=== PATIENT | male | born 1945 | race Caucasian/White ===

== ENCOUNTER 2018-10-02 01:13 | Outpatient (CLI) | payer OTHER, SELFPAY ==
[2018-10-02 14:52] LABS: Abs Immature Grans 0.01 k/cumm (0.0-0.09); Absolute Basophil Count 0.02 k/cumm (0.0-0.2); Absolute Eosinophil Count 0.09 k/cumm (0.0-0.7); Absolute Lymphocyte Count 1.96 k/cumm (1.2-3.4); Absolute Monocyte Count 0.64 k/cumm (0.11-0.7); Absolute Neutrophil Count 2.66 k/cumm (1.2-6.7); Basophils % 0.4; Eosinophils % 1.7; HGB 14.4 g/dL (13.5-17.5); Immature Grans % 0.2; Lymphocytes % 36.4; Mean Corp. HGB Concentration 34.3 g/dL (32.0-36.0); Mean Corpuscular Hemoglobin 30.8 pg (27.0-33.0); Mean Corpuscular Volume 89.7 fL (80-95); Mean Platelet Volume 10.5 fL (8.0-11.0); Monocytes % 11.9; Neutrophils % 49.4; Platelet Count 151 x1000/uL (130-400); RBC 4.68 m/cumm (4.50-6.00); RBC Distribution Width 13.9 % (11.8-14.1); White Blood Cell Count 5.38 k/cumm (4.4-10.8)
[2018-10-02 16:09] LABS: ALT 26 U/L (12-78); AST 23 U/L (15-37); Albumin 3.7 g/dL (3.4-5.0); Alkaline Phosphatase 58 U/L (46-116); Anion Gap 12.4 mmol/L (3-11); BUN 22 mg/dL (7-18); Bilirubin, Total 0.9 mg/dL (0.2-1.0); CO2 25.6 mmol/L (21.0-32.0); CREATININE 1.17 mg/dL (0.70-1.30); Calcium 8.9 mg/dL (8.5-10.1); Chloride 104 mmol/L (98-107); Cholesterol 191 mg/dL (50-200); Glucose 76 mg/dL (70-100); HDL Cholesterol 78 mg/dL (40-60); LDL CHOLESTEROL 94 mg/dL (<100); Sodium 142 mmol/L (136-145); TSH (W/Ref FT4) 1.45 uIU/mL (0.358-3.74); Total Protein 6.8 g/dL (6.4-8.2); Triglyceride 42 mg/dL (30-150); Vitamin B12 626 pg/mL (193-986)
[2018-10-02 16:59] LABS: Folate > 20.0 ng/mL (8.6-20.0)
[2018-10-02 17:08] LABS: Uric Acid 7.7 mg/dL (3.5-7.2)
[2018-10-05 11:56] LABS: Hepatitis C Ab w Rflx HCV PCR Negative (NEGAT)
[2018-10-05 13:06] LABS: Vitamin D 25 Total 65.7 ng/ml (30-100)
[2018-10-05 15:33] LABS: HIV-1 RNA Quantification Undetected copies/mL (UNDECT)
[2018-10-06 09:19] LABS: CD3 84 % (62-87); CD4 35 % (35-63); CD8 51 % (10-35)
[2018-10-08 09:24] LABS: Testosterone, Free 15.2 ng/dL (3.08-11.3); Testosterone, Total 726 ng/dL (240-950)
== END 2018-10-02 01:33 ==
PROVIDERS: PCP Family Medicine; Visit Provider Family Medicine
DX: Z86.2 Personal history of diseases of the blood and blood-forming organs and certain disorders involving the immune mechanism; R79.89 Other specified abnormal findings of blood chemistry; B20 Human immunodeficiency virus [HIV] disease; I10 Essential (primary) hypertension; R53.83 Other fatigue; E55.9 Vitamin D deficiency, unspecified; E78.2 Mixed hyperlipidemia; R10.32 Left lower quadrant pain; R97.20 Elevated prostate specific antigen [PSA]
CPT/HCPCS: 36415; 80053; 80061; 82306; 83721; 84402; 84403; 86803; 87536; 82607; 82746; 84154; 84443; 84550; 85025; 86359; 86360

== ENCOUNTER 2018-10-29 01:23 | Outpatient (CLI) | payer OTHER, SELFPAY | END 2018-10-29 01:43 | PROVIDERS: PCP Family Medicine; Visit Provider Family Medicine | DX: R97.20 Elevated prostate specific antigen [PSA] (principal) | CPT/HCPCS: 84154 ==

== ENCOUNTER 2018-11-02 00:38 | Outpatient (CLI) | payer OTHER, SELFPAY ==
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
== END 2018-11-02 00:58 ==
PROVIDERS: PCP Family Medicine; Visit Provider Family Medicine
DX: R07.9 Chest pain, unspecified (principal); E78.5 Hyperlipidemia, unspecified; I10 Essential (primary) hypertension; R53.83 Other fatigue; F41.9 Anxiety disorder, unspecified; Z87.891 Personal history of nicotine dependence
CPT/HCPCS: 78452; 93016; 93018; 93017

== ENCOUNTER 2018-12-18 03:52 | Outpatient (CLI) | payer OTHER, SELFPAY ==
[2018-12-20 16:34] LABS: Testosterone, Free 10.4 ng/dL (3.08-11.3); Testosterone, Total 650 ng/dL (240-950)
== END 2018-12-18 04:12 ==
PROVIDERS: PCP Family Medicine; Visit Provider Family Medicine
DX: R79.89 Other specified abnormal findings of blood chemistry (principal)
CPT/HCPCS: 36415; 84402; 84403

== ENCOUNTER → 2018-12-31 12:39 | Outpatient (BNVA) | payer OTHER, SELFPAY | PROVIDERS: PCP Family Medicine; Referring Provider Family Medicine; Visit Provider Urology | DX: R79.89 Other specified abnormal findings of blood chemistry (principal); R97.20 Elevated prostate specific antigen [PSA] | CPT/HCPCS: 99203 ==

== ENCOUNTER 2019-01-14 09:59 | Outpatient (CLI) | payer OTHER, SELFPAY ==
[2019-01-14 14:38] LABS: ALT 30 U/L (16-63); AST 27 U/L (15-37); Albumin 3.8 g/dL (3.4-5.0); Alkaline Phosphatase 61 U/L (46-116); Anion Gap 9.3 mmol/L (3-11); BUN 19 mg/dL (7-18); Bilirubin, Total 1.2 mg/dL (0.2-1.0); CO2 25.7 mmol/L (21.0-32.0); CREATININE 1.21 mg/dL (0.70-1.30); Calcium 8.5 mg/dL (8.5-10.1); Chloride 106 mmol/L (98-107); Estimated GFR 58.46 (mL/min/1.73m2); Folate 18.4 ng/mL (8.6-20.0); Glucose 78 mg/dL (70-100); Potassium 4.1 mmol/L (3.5-5.1); Sodium 141 mmol/L (136-145); Total Protein 6.7 g/dL (6.4-8.2); Vitamin B12 407 pg/mL (193-986)
[2019-01-14 14:48] LABS: Abs Immature Grans 0.01 k/cumm (0.0-0.09); Absolute Basophil Count 0.03 k/cumm (0.0-0.2); Absolute Eosinophil Count 0.06 k/cumm (0.0-0.7); Absolute Lymphocyte Count 1.78 k/cumm (1.2-3.4); Absolute Monocyte Count 0.43 k/cumm (0.11-0.7); Basophils % 0.6; Eosinophils % 1.2; HCT 42.9 % (40.0-50.0); HGB 14.5 g/dL (13.5-17.5); Immature Grans % 0.2; Mean Corp. HGB Concentration 33.8 g/dL (32.0-36.0); Mean Corpuscular Hemoglobin 30.1 pg (27.0-33.0); Mean Corpuscular Volume 89.2 fL (80-95); Mean Platelet Volume 12.4 fL (8.0-11.0); Monocytes % 8.9; Neutrophils % 52.1; Platelet Count 112 x1000/uL (130-400); RBC 4.81 m/cumm (4.50-6.00); RBC Distribution Width 14.6 % (11.8-14.1); White Blood Cell Count 4.81 k/cumm (4.4-10.8)
[2019-01-14 14:49] LABS: Uric Acid 8.3 mg/dL (3.5-7.2)
[2019-01-14 14:52] LABS: Vitamin D 25 Total 70.6 ng/ml (30-100)
[2019-01-15 16:25] LABS: HIV-1 RNA Quantification Undetected copies/mL (UNDECT)
[2019-01-15 16:40] LABS: CD3 84 % (62-87); CD4 36 % (35-63); CD8 52 % (10-35)
== END 2019-01-14 10:19 ==
PROVIDERS: PCP Family Medicine; Visit Provider Family Medicine
DX: E55.9 Vitamin D deficiency, unspecified (principal); E53.8 Deficiency of other specified B group vitamins; I10 Essential (primary) hypertension; E79.0 Hyperuricemia without signs of inflammatory arthritis and tophaceous disease; B20 Human immunodeficiency virus [HIV] disease
CPT/HCPCS: 36415; 80053; 82306; 87536; 82607; 82746; 84550; 85025; 86359; 86360

== ENCOUNTER 2019-11-02 01:16 | Outpatient (CLI) | payer OTHER, SELFPAY ==
[2019-11-05 07:35] LABS: Testosterone, Total 875 ng/dL (240-950)
== END 2019-11-02 01:36 ==
PROVIDERS: PCP Family Medicine; Visit Provider Urology
DX: R97.20 Elevated prostate specific antigen [PSA] (principal); R79.89 Other specified abnormal findings of blood chemistry
CPT/HCPCS: 84403; 84154

== ENCOUNTER → 2019-11-09 14:34 | Outpatient (BNVA) | payer OTHER, SELFPAY | PROVIDERS: PCP Family Medicine; Referring Provider Family Medicine; Visit Provider Urology | DX: E29.1 Testicular hypofunction (principal); R97.20 Elevated prostate specific antigen [PSA]; R79.89 Other specified abnormal findings of blood chemistry; I10 Essential (primary) hypertension; B20 Human immunodeficiency virus [HIV] disease | CPT/HCPCS: 99213 ==

== ENCOUNTER 2019-12-10 01:58 | Outpatient (CLI) | payer OTHER, SELFPAY ==
[2019-12-10 11:31] LABS: HCT 46.3 % (40.0-50.0); HGB 15.9 g/dL (13.5-17.5); MCH 32.9 pg (27.0-33.0); MCHC 34.3 % (32.0-36.0); MCV 95.7 fL (80-95); MPV 11.2 fL (8.0-11.0); Platelet Count 109 10^3/uL (130-400); RBC 4.84 10^6/uL (4.36-5.78); RDW 12.9 % (11.8-14.1); RDW-SD 45.6 fL; WBC 5.25 10^3/uL (4.4-10.8)
[2019-12-10 12:00] LABS: Absolute Eosinophil Count 0.05 10^3/uL (0.0-0.7); Absolute Lymphocyte Count 2.31 10^3/uL (1.2-3.4); Absolute Monocyte Count 0.16 10^3/uL (0.1-0.8); Absolute Neutrophil Count 2.73 10^3/uL (1.2-6.7); Atypical Lymphocytes % 14
[2019-12-10 12:01] LABS: Diff Comment Manual Differential; RBC Morphology Normal
[2019-12-10 12:08] LABS: ALT 33 U/L (16-63); AST 33 U/L (15-37); Albumin 3.7 g/dL (3.4-5.0); Alkaline Phosphatase 50 U/L (46-116); Anion Gap 8.1 mmol/L (3-11); BUN 20 mg/dL (7-18); CO2 28.9 mmol/L (21.0-32.0); CREATININE 1.19 mg/dL (0.70-1.30); Chloride 105 mmol/L (98-107); Estimated GFR 59.44 (mL/min/1.73m2); Glucose 84 mg/dL (74-106); Potassium 4.2 mmol/L (3.5-5.1); Sodium 142 mmol/L (136-145); Total Protein 6.9 g/dL (6.4-8.2); Uric Acid 7.4 mg/dL (3.5-7.2)
[2019-12-10 12:45] LABS: Vitamin B12 518 pg/mL (193-986)
[2019-12-12 15:26] LABS: CD3 82 % (62-87); CD4 33 % (35-63); CD8 52 % (10-35)
[2019-12-13 11:02] LABS: Hepatitis B Surface Ag Negative (Negative)
[2019-12-13 11:51] LABS: Hepatitis C Ab w Rflx HCV PCR Negative (Negative)
[2019-12-13 12:47] LABS: Hep A Total Ab w Rflx IgM Positive (Negative)
[2019-12-13 13:21] LABS: HBc IgM Ab, S Negative (Negative)
[2019-12-14 11:46] LABS: RPR Screen Response to Therapy Nonreactive (Nonreactive)
[2019-12-14 13:05] LABS: Hep A Antibody IgM Negative (Negative)
== END 2019-12-10 02:18 ==
PROVIDERS: PCP Family Medicine; Visit Provider Family Medicine
DX: B20 Human immunodeficiency virus [HIV] disease (principal)
CPT/HCPCS: 36415; 80053; 86709; 86803; 87340; 82607; 84550; 85025; 86359; 86360; 86592; 86705

== ENCOUNTER 2019-12-17 01:41 | Outpatient (CLI) | payer OTHER, SELFPAY ==
[2019-12-20 14:02] LABS: HIV 1 RNA Qualitative Undetected copies/mL (Undetected)
== END 2019-12-17 02:01 ==
PROVIDERS: PCP Family Medicine; Visit Provider Family Medicine
DX: B20 Human immunodeficiency virus [HIV] disease (principal); Z00.00 Encounter for general adult medical examination without abnormal findings
CPT/HCPCS: 36415; 87536

== ENCOUNTER → 2020-01-13 09:03 | Outpatient (BNVA) | payer OTHER, SELFPAY | PROVIDERS: PCP Family Medicine; Referring Provider Family Medicine; Visit Provider Nurse Practitioner Adult Health | DX: G31.84 Mild cognitive impairment of uncertain or unknown etiology (principal); I10 Essential (primary) hypertension; R41.3 Other amnesia; B20 Human immunodeficiency virus [HIV] disease | CPT/HCPCS: 99204 ==

== ENCOUNTER 2020-01-25 11:13 | Outpatient (CLI) | payer OTHER, SELFPAY ==
--- NOTE | 2020-01-25 11:00 | DI.RAD_ITS ---
EXAM: XR KNEE RT 2V AP,LAT CLINICAL HISTORY: pain TECHNIQUE: COMPARISON: No exams were available for comparison FINDINGS: Two views were obtained. The cartilaginous joint spaces appear fairly well maintained. There is mod erate marginal osteophyte formation of the bones of the knee. Probable loose body seen anteriorly on the lateral film. IMPRESSION: Degenerative changes as described above. RADIATION DOSE DELIVERED: Total DLP
--- NOTE | 2020-01-25 11:00 | DI.RAD_ITS ---
EXAM: XR KNEE LT 2V AP,LAT CLINICAL HISTORY: pain TECHNIQUE: COMPARISON: CR XR KNEE RT 2V AP,LAT from 01/25/2020 FINDINGS: Two views were obtained. There is moderate marginal osteophyte formation of bones of the knee. Cart ilaginous joint spaces appear fairly well maintained as visualized. No other significant bony abnorm ality seen. IMPRESSION: Mild degenerative changes as described above. RADIATION DOSE DELIVERED: Total DLP
== END 2020-01-25 11:33 ==
PROVIDERS: PCP Family Medicine; Referring Provider Family Medicine; Visit Provider Orthopaedic Surgery
DX: M17.0 Bilateral primary osteoarthritis of knee (principal)
CPT/HCPCS: 99201; 73560

== ENCOUNTER 2020-01-26 01:23 | Outpatient (CLI) | payer OTHER, SELFPAY ==
--- NOTE | 2020-01-26 07:00 | DI.MRI_ITS ---
EXAM: MR BRAIN WO CLINICAL HISTORY: Memory changes. Has implantable loop recorder,mild cognitive impairment, TECHNIQUE: Multiplanar multisequence MRI of the brain was performed. COMPARISON: No exams were available for comparison FINDINGS: The ventricular system is normal in appearance with mild generalized cerebral atrophy.. Mild scattered periventricular focal signal changes noted consistent with microvascular ischemic song ge. No other signal abnormality identified in the brain. The orbital and temporal bone structures appear intact as does the pituitary. Diffusion weighted imaging shows no evidence of infarction. Susceptibility weighted imaging shows no evidence of intracranial hemorrhage. There is normal flow void in the [place] vasculature. IMPRESSION: Normal brain MRI for age. DATA REPOSITORY:
== END 2020-01-26 01:43 ==
PROVIDERS: PCP Family Medicine; Visit Provider Nurse Practitioner Adult Health
DX: G31.84 Mild cognitive impairment of uncertain or unknown etiology (principal)
CPT/HCPCS: 70551

== ENCOUNTER → 2020-02-04 12:56 | Outpatient (BNVA) | payer OTHER, SELFPAY | PROVIDERS: PCP Family Medicine; Referring Provider Family Medicine; Visit Provider Physical Therapy Assistant | DX: Z12.11 Encounter for screening for malignant neoplasm of colon (principal); Z80.0 Family history of malignant neoplasm of digestive organs; I10 Essential (primary) hypertension; Z86.010 Personal history of colon polyps ==

== ENCOUNTER 2020-02-25 06:12 | Day surgery (SDC) | payer OTHER, SELFPAY ==
[2020-02-25 06:30] VITALS: BP 112/73; PULSE 65; RESP 16; TEMP 36.3; O2SAT 97
[2020-02-25] MEDS: Lactated Ringers 1,000 ML 80 ML IV (07:13)
--- NOTE | 2020-02-25 07:28 | W.PM.DSUDISC ---
Discharge Plan Disposition Patient Disposition: HOME Condition: Good Discharge Details Reason For Visit: Colonoscopy Attending Provider: Stephanie Aly Primary Care Provider: Miranda Mota Home Meds and New Rx's Prescriptions: Continued melatonin 5 mg capsule 5 mg PO PRN RF: 0 Eliquis 5 mg tablet 5 mg PO BID Qty: 180 RF: 4 bupropion HCl [Wellbutrin XL] 150 mg tablet extended release 24 hr 150 mg PO QAM Qty: 90 RF: 4 escitalopram oxalate [Lexapro] 20 mg tablet 20 mg PO DAILY Qty: 90 RF: 4 multivitamin tablet 1 tab PO DAILY RF: 0 naproxen [Naprosyn] 500 mg tablet 500 mg PO BID PRNRF: 0 Shingrix (PF) 50 mcg/0.5 mL suspension for reconstitution 0.5 ml IM ONCE Qty: 1 RF: 0 Odefsey 200-25-25 mg tablet 1 tab PO DAILY Qty: 90 RF: 3 sildenafil [Viagra] 100 mg tablet 100 mg PO DAILY PRN (Reason: erectile dysfunction) Qty: 18 RF: 4 testosterone 20.25 mg/1.25 gram (1.62 %) gel in metered-dose pump 2 pump TP DAILY Qty: 75 RF: 5 Discharge Instructions Additional Instructions: Findings: Extensive diverticulosis was noted. No polyps were found. Follow up: Due to a history of polyps and FH colon cancer, plan for a colonoscopy in 5 years depending on overall health. Please call if you develop: fevers >101.5 Nausea or Vomiting Abdominal pain that is not transient DAY SURGERY UNIT POST COLONOSCOPY INSTRUCTIONS 1. Because there will be medication in your system for the next 24 hours, you may feel a little sleepy. Your coordination will be affected. Therefore: a. Do not drive or operate dangerous equipment for 24 hours. b. Do not drink alcohol beverages for 24 hours (not even beer). c. Plan to go home and rest for the day. 2. Generally there are no restrictions on your activity after a day or so has gone by, but you may feel a bit fatigued for a few days. 3 After you arrive home you may have a light meal and return to a normal diet as you can tolerate it without feeling sick to your stomach. 4. After surgery, you may feel pain or discomfort. This should be only transient, but if it persists please contact your doctor. 5. If there are any questions regarding the findings of your procedure, please feel free to contact your doctor. 6. If you are unable to contact your doctor with a problem, contact the hospital at [phone]. 7. Continue all your regular medications unless directed otherwise. I understand the above instructions and have no questions. Signature of Patient or Responsible Adult Escort Date/Time Name of Responsible Adult Escort Signature of Nurse Date/Time Activity:: Activity as Tolerated Diet:: As Tolerated Discharge Orders Discharge Orders: Discharge Order (Routine); Ordered 02/25/20 Ordered By: Stephanie Aly DS: Diagnosis Discharge Diagnosis (1) Diverticulosis: Status: Acute
--- NOTE | 2020-02-25 08:09 | W.COLOREPORT ---
Date of service: 02/25/20 Time of Service: 08:09 Colonoscopy Report Date of procedure: 02/25/20 Pre-op diagnosis general: History of polyps, FH colon cancer Post-op diagnosis procedure note: other (Diverticulosis) Procedure: Colonoscopy Surgeon: Stephanie Aly Anesthesia proc note operative: MAC Indications: This 74 year old man presents for colonoscopy. Prior in 2017 showed tubular adenomas. Mother was treated for colon cancer. Procedure Description: The patient was placed in the left Diamond position. Propofol was titrated to sedation. Digital rectal examination revealed no abnormalities. The scope was advanced to the cecum without difficulty. The ileocecal valve and appendiceal orifice were clearly identified. The prep was good. The scope was slowly withdrawn over the course of greater than 6 minutes with no abnormalities (with the exception of pandiverticulosis) seen in the ascending, transverse, descending, sigmoid colon or rectum including on retroflexed view. The patient tolerated the procedure well and was stable to recovery. Plan for colonoscopy in 5 years due to history of polyps and FH colon cancer.
[2020-02-25 08:35] VITALS: BP 123/84; PULSE 64; RESP 18; TEMP 36.2; O2SAT 98
== END 2020-02-25 08:59 | disposition home or self-care (01) ==
PROVIDERS: PCP Family Medicine; Visit Provider Surgery
PROC: 0DJD8ZZ Inspection of Lower Intestinal Tract, Via Natural or Artificial Opening Endoscopic (ICD-10-PCS; CPT 45378; principal; 2020-02-25 07:30)
DX: Z12.11 Encounter for screening for malignant neoplasm of colon (principal); Z80.0 Family history of malignant neoplasm of digestive organs; Z86.010 Personal history of colon polyps; I10 Essential (primary) hypertension; Z86.711 Personal history of pulmonary embolism
CPT/HCPCS: G0105; J2001

== ENCOUNTER 2020-03-06 02:08 | Outpatient (CLI) | payer OTHER, SELFPAY ==
[2020-03-06 12:44] LABS: Abs Immature Grans 0.02 10^3/uL (0.0-0.06); Absolute Basophil Count 0.04 10^3/uL (0.0-0.2); Absolute Eosinophil Count 0.05 10^3/uL (0.0-0.7); Absolute Lymphocyte Count 2.04 10^3/uL (1.2-3.4); Absolute Monocyte Count 0.51 10^3/uL (0.1-0.8); Absolute Neutrophil Count 3.12 10^3/uL (1.2-6.7); Basophils % 0.7; Eosinophils % 0.9; HCT 44.7 % (40.0-50.0); HGB 15.2 g/dL (13.5-17.5); Immature Grans % 0.3; Lymphocytes % 35.3; MCH 33.2 pg (27.0-33.0); MCV 97.6 fL (80-95); MPV 10.9 fL (8.0-11.0); Monocytes % 8.8; Nucleated RBC 0 %; Platelet Count 130 10^3/uL (130-400); RBC 4.58 10^6/uL (4.36-5.78); RDW 13.2 % (11.8-14.1); RDW-SD 46.8 fL; WBC 5.78 10^3/uL (4.4-10.8)
[2020-03-06 13:15] LABS: Calculated LDL 99 mg/dL (<100); Cholesterol 192 mg/dL (<200); HDL Cholesterol 83 mg/dL (40-60); Triglyceride 51 mg/dL (<150)
[2020-03-07 17:28] LABS: CD3 81 % (62-87); CD4 32 % (35-63); CD8 52 % (10-35)
[2020-08-02 16:49] LABS: HIV 1 RNA Qualitative Undetected (Undetected)
== END 2020-03-06 02:28 ==
PROVIDERS: PCP Family Medicine; Visit Provider Emergency Medicine
DX: B20 Human immunodeficiency virus [HIV] disease (principal)
CPT/HCPCS: 36415; 80061; 87536; 85025; 86359; 86360

== ENCOUNTER 2020-04-04 15:50 | Emergency (ER) | payer OTHER, SELFPAY ==
[2020-04-04] VITALS (36 sets, daily range): BP systolic 126–150; BP diastolic 70–113; PULSE 59–94; RESP 9–25; TEMP 36.7; O2SAT 95–100
--- NOTE | 2020-04-04 15:45 | RT.EKG_ITS ---
APPROVED REPORT Exam: Resting ECG Patient Location: E HR:82 bpm ECG Measurements Heart Rate 82 AXIS WA 184 P 52 QRSd 96 QRS -33 QT 380 T 10 QTc 443 Conclusion Sinus rhythm...normal P axis, V-rate 60- 99 Left axis deviation...QRS axis (-30,-90) I have reviewed and interpreted ECG and agree with software generated interpretation.
--- NOTE | 2020-04-04 15:56 | W.ED.GENAD ---
Discharge Plan Disposition Patient Disposition: HOME Condition: Good Discharge Details Clinical Impression: Chest wall pain Primary Care Provider: Miranda Mota ED Provider: Katie Kilgore Home Meds and New Rx's Prescriptions: New lidocaine [Lidoderm] 5 % adhesive patch,medicated 1 patch TP DAILY PRN (Reason: pain) Qty: 15 RF: 0 Continued melatonin 5 mg capsule 5 mg PO PRN RF: 0 Eliquis 5 mg tablet 5 mg PO BID Qty: 180 RF: 4 bupropion HCl [Wellbutrin XL] 150 mg tablet extended release 24 hr 150 mg PO QAM Qty: 90 RF: 4 escitalopram oxalate [Lexapro] 20 mg tablet 20 mg PO DAILY Qty: 90 RF: 4 multivitamin tablet 1 tab PO DAILY RF: 0 naproxen [Naprosyn] 500 mg tablet 500 mg PO BID PRNRF: 0 Shingrix (PF) 50 mcg/0.5 mL suspension for reconstitution 0.5 ml IM ONCE Qty: 1 RF: 0 Odefsey 200-25-25 mg tablet 1 tab PO DAILY Qty: 90 RF: 3 sildenafil [Viagra] 100 mg tablet 100 mg PO DAILY PRN (Reason: erectile dysfunction) Qty: 18 RF: 4 testosterone 20.25 mg/1.25 gram (1.62 %) gel in metered-dose pump 2 pump TP DAILY Qty: 75 RF: 5 Discharge Instructions Instructions: Chest Wall Pain (ED) Additional Instructions: Alternate ice and heat to the affected area(s) several times daily for 20 minutes at a time. Take Tylenol as needed and directed for pain. Follow-up with your primary care doctor in 1 week. Return to the emergency department with any worsening or new concerning symptoms. Discharge Data Discharge Date/Time-TO BE ENTERED AT DEPARTURE: 04/04/20 19:21 Discharge Physician: Katie Kilgore Medical Decision Making 1630 -- 75-year-old male with a history of HIV,, hypertension, hyperlipidemia presents for cough, pleuritic and reproducible left-sided chest pain with movement, and intermittent shortness of breath with exertion for the past 10 days EKG notes a rate of 82, sinus without acute ST-T wave ischemic changes, nondiagnostic. Patient appears nontoxic and comfortable. No signs of respiratory distress. He has left anterior inferior chest tenderness. Lungs clear. Differential diagnosis includes PE, pneumonia, bronchitis, musculoskeletal chest wall pain, etc. Will place an IV, bolus IV fluids, screening labs, Lidoderm patch, CT chest to rule out PE and reassess. 1844 -- Labs and imaging reviewed and unremarkable. Patient reassessed and he feels much better and feels good to go home. We will send with prescription for Lidoderm patches. Advised to alternate ice and heat. Advised to follow up with the primary care doctor for re-evaluation. Usual and customary return precautions given prior to discharge. 04/05/20-- One day after ED visit discharge: Dr. Downing read CT chest from yesterday and noted a discrepancy with indeterminate left upper lobe pulmonary nodule appears to be of fat attenuation, this is suggestive of pulmonary hamartoma. Follow-up chest CT recommended in 6 months to assess stability. Patient was called at home and informed of these findings and to have a follow-up CT chest in 6 months. Medical Records Medical records reviewed: Yes I reviewed the patient's medical records. Imaging Data Radiologic Study: Radiologist's impression: CT Angiography Chest With Contrast Exam date and time: 04/04/2020 5:49 PM Age: 75 years old Clinical indication: Other: Shortness of breath, L chest pain, R/O pe; Prior surgery; Surgery date: 6+ months; Surgery type: Cardiac oblation 2015 TECHNIQUE: Imaging protocol: Computed tomographic angiography of the chest with intravenous contrast. 3D rendering (Not supervised by radiologist): MIP and/or 3D reconstructed images were created by the technologist. Contrast material: OMNIPAQUE 350; Contrast volume: 100 ml; Contrast route: INTRAVENOUS (IV); COMPARISON: No relevant prior studies available. FINDINGS: Pulmonary arteries: No evidence of pulmonary embolism. Aorta: No aortic aneurysm. No aortic dissection. Lungs: Mild bibasilar atelectasis. No focal consolidation. 4 mm right middle lobe nodule, image 41. 4 mm left upper lobe nodule, image 36. Pleural space: No pleural effusion. No pneumothorax. Heart: The heart is mildly enlarged. No pericardial effusion. Lymph nodes: No pathologically enlarged lymph nodes. Liver: Small, nonspecific hypodensities are seen in the liver. Bones/joints: There are remote bilateral rib deformities. There are multilevel degenerative changes in the spine. No acute fracture. No destructive bone lesion. Soft tissues: Unremarkable. IMPRESSION: 1. No evidence of pulmonary embolism. 2. No aortic dissection. 3. Mild cardiomegaly. 4. Additional incidental/non-emergent findings, as above. CT CHEST PE CTA - 04/05/20 Dr. Downing CLINICAL HISTORY: shortness of breath, L chest pain, r/o PE. TECHNIQUE: Imaging Protocol: Axial CT angiography was performed with multi-slice acquisition and multi-planar and/or 3D reconstructions. CONTRAST MATERIAL: Intravenous: Omnipaque 350 Contrast volume:structured data in ml COMPARISON: No exams were available for comparison FINDINGS: CT angiography of the chest was performed with intravenous infusion of 100 cc of Omnipaque 350. Lungs are predominantly clear. There is a fat attenuation elongated nodule of left upper pulmonary medially at the aortic arch, this measures 17 x 12 x 8 millimeters in diameter and has a lobulated appearance. Small calcified left upper lobe pulmonary nodule noted.. No pleural effusion. Tracheobronchial tree appears intact. No evidence of pulmonary embolic disease. Thoracic aorta is of normal diameter, no thoracic aortic aneurysm or dissection, major branch vessels appear intact. No mediastinal or hilar adenopathy. Images obtained through the upper abdomen show nonspecific low-attenuation small hepatic lesions consistent cysts. However these are too small to characterize conclusively. Visualized portions of pancreas, spleen, and adrenals appear normal. IMPRESSION: No evidence of pulmonary embolic disease. Indeterminate left upper lobe pulmonary nodule appears to be of fat attenuation, this is suggestive of pulmonary hamartoma. Follow-up chest CT recommended in 6 months to assess stability. Lab Data Lab results reviewed: Yes I reviewed the patient's lab results. ECG Data Attestation: I personally reviewed and interpreted this ECG (s) as follows: Interpretation: Rate of 82, sinus, no acute ST elevation or depression. RI 184. QRS 96. QTc 443 HPI General Mode of arrival: ambulatory. Date/Time Provider Initiated Documentation: 04/04/20 15:51. Limitations to Documentation: no limitations. Information obtained by: patient. 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 Patient states his main complaint is left-sided chest pain that is worse with movement and deep breaths. He states with ambulation he feels winded . He admits to a minimal cough but occasionally productive of white or beige sputum but denies any known fever. He denies any recent travel, recent known sick contacts, recent known exposure to coronavirus, recent hospital admission. He states he called his primary care doctor for his symptoms and they referred him here for further evaluation. He states he has not missed any doses of his Eliquis. Related Data Home Medications Medication Instructions Recorded Confirmed multivitamin 1 tab PO DAILY 07/21/18 04/04/20 naproxen 500 mg tablet 500 mg PO BID PRN 07/21/18 04/04/20 varicella-zoster glycoE [id number] 0.5 ml IM ONCE #1 each 02/11/19 02/24/20 adj(PF) 50 mcg/0.5 mL IM susp, kit emtricitabine 200 mg-rilpivirine 1 tab PO DAILY #90 tab 06/12/19 04/04/20 25 mg-tenofovir alafenam 25 mg tablet apixaban 5 mg tablet 5 mg PO BID #180 tab 12/16/19 04/04/20 bupropion HCl 150 mg 24 hr tablet, 150 mg PO QAM #90 tab 12/16/19 04/04/20 extended release escitalopram oxalate 20 mg tablet 20 mg PO DAILY #90 tab 12/16/19 04/04/20 sildenafil 100 mg tablet 100 mg PO DAILY PRN #18 tab 01/04/20 04/04/20 testosterone 20.25 mg/1.25 gram 2 pump TP DAILY #75 gm 01/04/20 04/04/20 (1.62 %) transdermal gel pump melatonin 5 mg capsule 5 mg PO PRN cap 01/25/20 04/04/20 lidocaine [Lidoderm] 1 patch TP DAILY PRN #15 each 04/04/20 Previous Rx's Medication Instructions Recorded varicella-zoster glycoE vacc-[id number] 0.5 ml IM ONCE #1 each 02/11/19 adj(PF) 50 mcg/0.5 mL IM susp, kit emtricitabine 200 mg-rilpivirine 1 tab PO DAILY #90 tab 06/12/19 25 mg-tenofovir alafenam 25 mg tablet apixaban 5 mg tablet 5 mg PO BID #180 tab 12/16/19 bupropion HCl 150 mg 24 hr tablet, 150 mg PO QAM #90 tab 12/16/19 extended release escitalopram oxalate 20 mg tablet 20 mg PO DAILY #90 tab 12/16/19 sildenafil 100 mg tablet 100 mg PO DAILY PRN #18 tab 01/04/20 testosterone 20.25 mg/1.25 gram 2 pump TP DAILY #75 gm 01/04/20 (1.62 %) transdermal gel pump lidocaine [Lidoderm] 1 patch TP DAILY PRN #15 each 04/04/20 Allergies Allergy/AdvReac Type Severity Reaction Status Date / Time No Known Drug Allergies Allergy Unknown Verified 04/04/20 16:06 Review of Systems All systems reviewed & are unremarkable except as noted in HPI and below Constitutional Constitutional: Reports as per HPI, Denies chills, Denies fever(s) and Reports malaise Eyes Eyes: Denies blurry vision ENT Ears, Nose, Mouth, and Throat: Denies dizziness, Denies sore throat and Denies throat swelling Cardiovascular Cardiovascular: Reports chest pain and Reports dyspnea Respiratory Respiratory: Reports cough and Reports dyspnea Gastrointestinal Gastrointestinal: Denies abdominal pain, Denies diarrhea and Denies vomiting Genitourinary Genitourinary: Denies hematuria and Denies dysuria Musculoskeletal Musculoskeletal: Denies back pain and Denies numbness Integumentary/Breasts Skin/Breast: Denies lesions and Denies rash Neurologic Neurologic: Denies dizziness, Denies localized weakness and Denies numbness Allergic/Immunologic Allergic/Immunologic: Denies throat swelling FOR[facility]LY [facility], [facility] Medical History (Updated 04/04/20 @ 19:08 by Katie Kilgore DO) Allergic rhinitis (~2012) Anxiety disorder (~2017) Benign prostatic hyperplasia with lower urinary tract symptoms (~2018) Disorder of kidney and ureter (~2017) Elevated PSA Essential hypertension (~2012) History of pulmonary embolism 02/25, 03/29 HIV (human immunodeficiency virus infection) (~2011) Hx of diverticulitis of colon Hx of gastrointestinal diverticular hemorrhage Hypogonadism (~2012) Low testosterone (~2012) Mild cognitive impairment Mixed hyperlipidemia (~2016) POLST (Physician Orders for Life-Sustaining Treatment) Spinal stenosis, lumbar region with neurogenic claudication Vestibular hypofunction (~2017) Vitamin B12 deficiency (~2012) Surgical History History of cardiac catheterization History of hernia repair left inguinal 1999, right 1970 History of loop recorder 2017 Family History Mother , 88 Prostate cancer Depression Stroke Father , 79 Depression Stroke Alcohol abuse Sister , 75 Breast cancer Alcohol abuse Hypertension Substance abuse Brother Prostate cancer Depression Social History (Updated 02/24/20 @ 11:50 by Rajni Nix) Smoking/Tobacco Use Status: Former Tobacco Use Quit Date: 05/12/84 Second Hand Exposure: Yes Smoking risk assessment performed?: Yes Alcohol Intake: current Alcohol Intake frequency: 0-2 drinks per day Alcohol type: beer, wine and hard liquor Drug use: Rarely Substance use type: marijuana Caregiver/Support person: No Household members: significant other Housing: condominium Number of Children: 0 Communication Needs: Corrective Lenses Do you need help understanding health information?: Rarely Pets and animals: No Sexually active: Yes Do you think of yourself as: lesbian/jason/homosexual Current gender identity: male What is your relationship status?: living with partner How often do you talk on the phone with friends or family?: once per week How often do you get together with friends or relatives?: once per week How often do you attend mosque or samaritan services?: 4 or more times per year Do you belong to any clubs or organized social groups?: yes Panel score (0-1 are the most socially isolated patients): 3 What type of physical activity do you participate in: walking, independent ambulation, bicycling and regular exercise Duration: 45-60 minutes/day Frequency: 3-4 times per week Maryam/Alevism: Pentecostalism Special maryam needs: No Seatbelt use: always Helmet use: Yes Helmet use: always Drive intox or ride w/intox truck driver salesperson: No Do you feel safe at home: Yes Do you feel safe in your relationship?: Yes Exam Const General: cooperative and healthy appearing Orientation: alert and awake HENIL Head: normal to inspection Ears: hearing grossly normal bilaterally and external ears normal General nose exam: external nose normal Face and sinus: normal facial exam Mouth: oral mucosae normal Teeth and gingiva: dentition normal Throat: posterior oropharynx normal Eyes General: appearance normal, both eyes and all related structures Eyelids: eyelids normal Pupils: PERRL EOM: EOM intact bilaterally Neck Neck: normal visual inspection Lymphatic: no lymphadenopathy noted Chest Chest: normal inspection of the chest Chest/axillae images: 1. Tenderness to palpation of left anterior inferior chest. No crepitus, erythema, edema, ecchymosis. Resp Effort & Inspection: normal respiratory effort and able to speak in complete sentences Auscultation: clear to auscultation bilaterally Cardio Rate: regular rate Rhythm: regular rhythm GI Inspection: normal to inspection Palpation: soft, not firm, no guarding, no hepatosplenomegaly, no masses and nontender Auscultation: normal bowel sounds Back/Spine/Pelvis Back: no CVA tenderness Skin General skin exam: no rashes or lesions noted Neuro General: patient alert and patient awake Cognition: normal cognition Speech: speech normal Gait: normal gait Motor: muscle tone normal throughout Sensory Exam: no sensory deficits noted Extrem General: normal to inspection, full ROM, capillary refill normal and no edema Psych Appearance: grossly normal Mental Status: mental status grossly normal Speech and Movement: speech and movement normal Affect: normal affect Thought Process: normal
[2020-04-04 16:17] LABS: Abs Immature Grans 0.01 10^3/uL (0.0-0.06); Absolute Basophil Count 0.03 10^3/uL (0.0-0.2); Absolute Eosinophil Count 0.05 10^3/uL (0.0-0.7); Absolute Lymphocyte Count 1.76 10^3/uL (1.2-3.4); Absolute Monocyte Count 0.48 10^3/uL (0.1-0.8); Absolute Neutrophil Count 3.37 10^3/uL (1.2-6.7); Basophils % 0.5; Eosinophils % 0.9; HCT 43.7 % (40.0-50.0); HGB 15.1 g/dL (13.5-17.5); Immature Grans % 0.2; Lymphocytes % 30.9; MCH 33.6 pg (27.0-33.0); MCHC 34.6 % (32.0-36.0); MCV 97.3 fL (80-95); MPV 10.7 fL (8.0-11.0); Monocytes % 8.4; Neutrophils % 59.1; Nucleated RBC 0 %; Platelet Count 120 10^3/uL (130-400); RBC 4.49 10^6/uL (4.36-5.78); RDW 12.7 % (11.8-14.1); RDW-SD 45.6 fL
--- NOTE | 2020-04-04 16:25 | DI.CT_ITS ---
EXAM: CT CHEST PE CTA CLINICAL HISTORY: shortness of breath, L chest pain, r/o PE. TECHNIQUE: Imaging Protocol: Axial CT angiography was performed with multi-slice acquisition and mu lti-planar and/or 3D reconstructions. CONTRAST MATERIAL: Intravenous: Omnipaque 350 Contrast volume:structured data in ml COMPARISON: No exams were available for comparison FINDINGS: CT angiography of the chest was performed with intravenous infusion of 100 cc of Omnipaque 350. Lungs are predominantly clear. There is a fat attenuation elongated nodule of left upper pulmonary m edially at the aortic arch, this measures 17 x 12 x 8 millimeters in diameter and has a lobulated cassandra earance. Small calcified left upper lobe pulmonary nodule noted.. No pleural effusion. Tracheobronc hial tree appears intact. No evidence of pulmonary embolic disease. Thoracic aorta is of normal diameter, no thoracic aortic an eurysm or dissection, major branch vessels appear intact. No mediastinal or hilar adenopathy. Images obtained through the upper abdomen show nonspecific low-attenuation small hepatic lesions cons istent cysts. However these are too small to characterize conclusively. Visualized portions of panc reas, spleen, and adrenals appear normal. IMPRESSION: No evidence of pulmonary embolic disease. Indeterminate left upper lobe pulmonary nodule appears to be of fat attenuation, this is suggestive o f pulmonary hamartoma. Follow-up chest CT recommended in 6 months to assess stability. RADIATION DOSE DELIVERED: 403.53mGy.cm Total DLP 403.53mGy.cm Total DLP DATA REPOSITORY: All CT scans at this facility are submitted to the National Radiology Data Registry (NRDR) Dose Index Registry (DIR) with the [employer] (ACR). RADIATION OPTIMIZATION: All CT scans at this facility use at least one of these dose optimization te chniques: automated exposure control; mA and/or kV adjustment per patient size (includes targeted exa ms where dose is matched to clinical indication); or iterative reconstruction.
[2020-04-04] MEDS: Normal Saline 1,000 ML 1000 ML IV (16:30)
[2020-04-04] MEDS: Lidocaine 5% Patch 1 PATCH TP (16:30)
[2020-04-04] MEDS: Normal Saline Flush 10 ML SYR ×2 (16:30→17:42)
[2020-04-04 16:31] LABS: PTT Activated 26.5 sec (21.0-27.5); Prothrombin Time 10.5 sec (9.3-11.0)
[2020-04-04 16:36] LABS: ALT 24 U/L (16-63); AST 24 U/L (15-37); Albumin 3.7 g/dL (3.4-5.0); Alkaline Phosphatase 56 U/L (46-116); Anion Gap 5.2 mmol/L (3-11); BUN 16 mg/dL (7-18); Bilirubin, Total 0.9 mg/dL (0.2-1.0); CO2 28.8 mmol/L (21.0-32.0); CREATININE 1.23 mg/dL (0.70-1.30); Calcium 8.7 mg/dL (8.5-10.1); Chloride 107 mmol/L (98-107); Estimated GFR 57.06 (mL/min/1.73m2); Glucose 101 mg/dL (74-106); Magnesium 2.1 mg/dL (1.8-2.4); NT-proBNP 79 pg/mL (<300); Potassium 3.9 mmol/L (3.5-5.1); Sodium 141 mmol/L (136-145)
[2020-04-04 16:40] LABS: Troponin I < 0.05 ng/mL (<0.06)
[2020-04-04] MEDS: Omnipaque 350 MG/ML 100 ML BTL IJ (17:40)
[2020-04-04] MEDS: Normal Saline - Diluent 50 ML VIAL IV (17:42)
--- NOTE | 2020-04-04 18:17 | DI.VRAD_ITS ---
PROCEDURE INFORMATION: Exam: CT Angiography Chest With Contrast Exam date and time: 04/04/2020 5:49 PM Age: 75 years old Clinical indication: Other: Shortness of breath, L chest pain, R/O pe; Prior surgery; Surgery date: 6+ months; Surgery type: Cardiac oblation 2016 TECHNIQUE: Imaging protocol: Computed tomographic angiography of the chest with intravenous contrast. 3D rendering (Not supervised by radiologist): MIP and/or 3D reconstructed images were created by the technologist. Contrast material: OMNIPAQUE 350; Contrast volume: 100 ml; Contrast route: INTRAVENOUS (IV); COMPARISON: No relevant prior studies available. FINDINGS: Pulmonary arteries: No evidence of pulmonary embolism. Aorta: No aortic aneurysm. No aortic dissection. Lungs: Mild bibasilar atelectasis. No focal consolidation. 4 mm right middle lobe nodule, image 41. 4 mm left upper lobe nodule, image 36. Pleural space: No pleural effusion. No pneumothorax. Heart: The heart is mildly enlarged. No pericardial effusion. Lymph nodes: No pathologically enlarged lymph nodes. Liver: Small, nonspecific hypodensities are seen in the liver. Bones/joints: There are remote bilateral rib deformities. There are multilevel degenerative changes in the spine. No acute fracture. No destructive bone lesion. Soft tissues: Unremarkable. IMPRESSION: 1. No evidence of pulmonary embolism. 2. No aortic dissection. 3. Mild cardiomegaly. 4. Additional incidental/non-emergent findings, as above. Dictated and Authenticated by: Jensen Dobbins MD. Ordering:DOROTA Wilson MD
== END 2020-04-04 19:21 | disposition home or self-care (01) ==
PROVIDERS: Emergency Provider Physician Assistant; PCP Family Medicine
DX: R07.81 Pleurodynia (principal); R06.02 Shortness of breath; R91.1 Solitary pulmonary nodule; I10 Essential (primary) hypertension
CPT/HCPCS: 36415; 71275; 80053; 93005; 96360; 96361; 99285; 83605; 83735; 83880; 84484; 85025; 85610; 85730; 93010; J3490

== ENCOUNTER 2020-04-20 05:20 | Outpatient (CLI) | payer OTHER, SELFPAY ==
[2020-04-20 17:43] LABS: PSA, Diagnostic 2.5 ng/mL (0.0-6.5)
[2020-04-23 15:03] LABS: Testosterone, Total 755 ng/dL (240-950)
== END 2020-04-20 05:40 ==
PROVIDERS: Nurse Practitioner Gerontology; PCP Family Medicine; Visit Provider Urology
DX: C61 Malignant neoplasm of prostate (principal); E29.1 Testicular hypofunction; R97.20 Elevated prostate specific antigen [PSA]
CPT/HCPCS: 36415; 84403; 84153

== ENCOUNTER → 2020-04-25 12:59 | Outpatient (BNVA) | payer OTHER, SELFPAY | PROVIDERS: PCP Family Medicine; Referring Provider Family Medicine; Visit Provider Urology | DX: R79.89 Other specified abnormal findings of blood chemistry (principal); R97.20 Elevated prostate specific antigen [PSA] | CPT/HCPCS: 99213 ==

== ENCOUNTER 2020-06-30 02:40 | Outpatient (CLI) | payer OTHER, SELFPAY ==
[2020-06-30 12:30] LABS: Bilirubin Negative (Negative); Blood Negative (Negative); Clarity Clear (Clear); Glucose Negative (Negative); Ketones Negative (Negative); Leukocyte Esterase Negative (Negative); Nitrite Negative (Negative); Urobilinogen 0.2 EU/dL (Up TO 0.2); pH 7.5 (5-8)
[2020-06-30 13:06] LABS: ALT 29 U/L (16-63); AST 26 U/L (15-37); Albumin 3.8 g/dL (3.4-5.0); Alkaline Phosphatase 56 U/L (46-116); Anion Gap 7.2 mmol/L (3-11); BUN 14 mg/dL (7-18); Bilirubin, Total 1.1 mg/dL (0.2-1.0); CO2 30.8 mmol/L (21.0-32.0); CREATININE 1.2 mg/dL (0.70-1.30); Chloride 104 mmol/L (98-107); Estimated GFR 58.71 (mL/min/1.73m2); Glucose 94 mg/dL (74-106); Potassium 4.2 mmol/L (3.5-5.1); Sodium 142 mmol/L (136-145)
[2020-06-30 13:07] LABS: Abs Immature Grans 0.02 10^3/uL (0.0-0.06); Absolute Basophil Count 0.06 10^3/uL (0.0-0.2); Absolute Eosinophil Count 0.13 10^3/uL (0.0-0.7); Absolute Monocyte Count 0.43 10^3/uL (0.1-0.8); Absolute Neutrophil Count 2.81 10^3/uL (1.2-6.7); Basophils % 1.1; Eosinophils % 2.5; HCT 45.6 % (40.0-50.0); HGB 16.1 g/dL (13.5-17.5); Immature Grans % 0.4; Lymphocytes % 34.3; MCH 33.5 pg (27.0-33.0); MCHC 35.3 % (32.0-36.0); MPV 11.5 fL (8.0-11.0); Monocytes % 8.2; Neutrophils % 53.5; Nucleated RBC 0 %; Platelet Count 118 10^3/uL (130-400); RDW 12.5 % (11.8-14.1); RDW-SD 43.8 fL; WBC 5.25 10^3/uL (4.4-10.8)
[2020-07-03 11:00] LABS: CD3 84 % (62-87); CD4 37 % (35-63); CD8 50 % (10-35)
[2020-07-03 13:51] LABS: HIV 1 RNA Qualitative Detected copies/mL (Undetected); HIV 1 RNA Quantitative 56 copies/mL (Undetected)
== END 2020-06-30 02:41 | disposition home or self-care (01) ==
LOC: LBO 02:40
PROVIDERS: PCP Family Medicine; Visit Provider Family Medicine
DX: B20 Human immunodeficiency virus [HIV] disease (principal); I10 Essential (primary) hypertension
CPT/HCPCS: 36415; 80053; 87536; 81003; 85025; 86359; 86360

== ENCOUNTER 2020-12-06 08:52 | Outpatient (CLI) | payer OTHER, SELFPAY ==
[2020-12-06 22:35] LABS: PSA, Diagnostic 2.8 ng/mL (0.0-6.5)
[2020-12-08 16:29] LABS: Testosterone, Total 776 ng/dL (240-950)
== END 2020-12-06 08:53 | disposition home or self-care (01) ==
LOC: LBO 08:56
PROVIDERS: Urology; PCP Family Medicine; Visit Provider Family Medicine
DX: E29.1 Testicular hypofunction; R97.20 Elevated prostate specific antigen [PSA]
CPT/HCPCS: 36415; 84403; 84153

== ENCOUNTER → 2020-12-12 11:31 | Outpatient (BNVA) | payer OTHER, SELFPAY | PROVIDERS: PCP Family Medicine; Referring Provider Family Medicine; Visit Provider Urology | DX: R79.89 Other specified abnormal findings of blood chemistry (principal); R97.20 Elevated prostate specific antigen [PSA] | CPT/HCPCS: 99213 ==

== ENCOUNTER 2020-12-19 03:23 | Outpatient (CLI) | payer OTHER, SELFPAY ==
[2020-12-19 11:49] LABS: Abs Immature Grans 0.01 10^3/uL (0.0-0.06); Absolute Basophil Count 0.04 10^3/uL (0.0-0.2); Absolute Eosinophil Count 0.05 10^3/uL (0.0-0.7); Absolute Monocyte Count 0.47 10^3/uL (0.1-0.8); Basophils % 0.9; Eosinophils % 1.1; HCT 42.1 % (40.0-50.0); HGB 14.5 g/dL (13.5-17.5); Immature Grans % 0.2; Lymphocytes % 38.5; MCH 33.1 pg (27.0-33.0); MCHC 34.4 % (32.0-36.0); MCV 96.1 fL (80-95); MPV 10.6 fL (8.0-11.0); Monocytes % 10.1; Neutrophils % 49.2; Nucleated RBC 0 %; Platelet Count 100 10^3/uL (130-400); RBC 4.38 10^6/uL (4.36-5.78); RDW 12.6 % (11.8-14.1); RDW-SD 45.1 fL; WBC 4.67 10^3/uL (4.4-10.8)
[2020-12-20 13:16] LABS: HIV-1/2 Ag & Ab Screen Reactive (Negative)
[2020-12-20 14:21] LABS: 4/8 Ratio 0.63 (>=0.90); Absolute CD3 1416 Cells/uL (840-2,669); Absolute CD8 908 Cells/uL (154-1,097); CD3 82 % (56-84); CD4 33 % (31-64); CD8 53 % (9-39)
[2020-12-21 15:12] LABS: HIV 1 RNA Qualitative Detected copies/mL (Undetected); HIV 1 RNA Quantitative 20 copies/mL (Undetected)
[2021-01-01 16:39] LABS: HIV 1 Ab Diff Positive (Negative)
[2021-01-01 16:40] LABS: HIV 1 Band(s) See Comments
[2021-01-01 16:41] LABS: HIV 2 Ab Diff Indeterminate (Negative)
== END 2020-12-19 03:24 | disposition home or self-care (01) ==
LOC: LBO 03:23
PROVIDERS: PCP Family Medicine; Visit Provider Family Medicine
DX: B20 Human immunodeficiency virus [HIV] disease (principal)
CPT/HCPCS: 36415; 86701; 86702; 87389; 87536; 85025; 86359; 86360

== ENCOUNTER 2021-01-09 01:51 | Outpatient (CLI) | payer OTHER, SELFPAY ==
--- NOTE | 2021-01-09 10:42 | DI.US_ITS ---
APPROVED REPORT EXAM: Comprehensive 2D, Doppler, and color-flow Echocardiogram Patient Location: Out-Patient Mail Sorter: Sadie Gaona RDCS (AE) Indications: Pericardial effusion on CT Other Information Study Quality: Poor. Technically limited study due to body habitus, congenital rib malformation. Conclusion Left Ventricle : The left ventricle is normal size. The left ventricular systolic function is normal. The left ventricular ejection fraction is within the normal range. There is normal left ventricular wall thickness. There is normal LV segmental wall motion. LVEF is 55-60%. Right Ventricle : Right ventricle is not well visualized. Right ventricular systolic function could n ot be assessed. The RVSP is 27.6mmHg. Atria : Left atrium is not well visualized. Right atrium is not well visualized. Valves: There are no hemodynamically significant valvular lesions. Pericardium : Small anterior pericardial effusion without evidence of hemodynamic compromise. Please see remainder of study for further details. Wall motion Left Ventricle The left ventricle is normal size. The left ventricular systolic function is normal. The left ventric ular ejection fraction is within the normal range. There is normal left ventricular wall thickness. T here is normal LV segmental wall motion. LVEF is 55-60%. Right Ventricle Right ventricle is not well visualized. Right ventricular systolic function could not be assessed. Th e RVSP is 27.6mmHg. Atria Left atrium is not well visualized. Right atrium is not well visualized. The interatrial septum is in tact with no evidence for an atrial septal defect. Aortic Valve The aortic valve is normal in structure. Aortic valve is trileaflet. There is no aortic valvular sten osis. No aortic regurgitation is present. Mitral Valve The mitral valve is normal in structure. No evidence of mitral valve stenosis. Trace to mild mitral r egurgitation. Tricuspid Valve Tricuspid valve is not well visualized. Trace tricuspid regurgitation. Pulmonic Valve The pulmonary valve is normal in structure. There is no pulmonic valvular stenosis. There is no pulmo nolvia valvular regurgitation. Great Vessels The aortic root is normal in size. The ascending aorta is normal in size. The IVC collapses <50% with inspiration. Pericardium Small anterior pericardial effusion without evidence of hemodynamic compromise. 2D Dimensions IVSD d PLAX 0.93 cm M: 0.6-1.2 LVPW d PLAX 0.93 cm M: 0.6 - 1.2 LVID d PLAX 4.56 cm M: 4.2 - 5.8 LVDs 3.05 cm M: 2.5 - 4.0 Ao Root d 3.03 cm M: 3.1 - 3.7 Ao Asc Diam d 3.26 cm M: 2.6 - 3.4 LV EF Teichholz 61.1 % FS 32.60 % LV Diastology E/A Ratio 1.1 MV E Vmax 0.61 (0.4-1.3 m/s) MV A Vmax 0.55 (0.4-1.3 m/s) MV E/A Ratio 1.09 Aortic Valve LVOT Area 3.18 cm2 AoV Area Vmax 1.82 cm2 LVOT Vmax 0.47 m/s AoV Area/ BSA (Vmax) 0.94 cm2/m2 LVOT Mean Pedro. 0.34 m/s DILLON Mean Pedro. 1.76 cm2 LVOT Peak Grad 0.9 mmHg DILLON Mean Pedro. Index 0.91 cm2/m2 LVOT Mean Grad 0.5 mmHg LVOT VTI 0.110 m LVOT Diam s 2.00 cm AoV Vmax 0.82 m/s Velocity Ratio 0.57 AoV Mean Pedro. 0.62 m/s AoV Peak Grad 2.7 mmHg LVOT SV 34.85 mL AoV Mean Grad 1.7 mmHg AoV VTI 0.185 m AoV Area VTI 1.89 cm2 AoV Area/ BSA (VTI) 0.98 cm/m2 Mitral Valve MV DT 146 (160-240 msec) MV PHT 42 msec MV Area PHT 5.20 cm2 Pulmonary Valve PV Vmax 1.14 (0.5-1.5 m/s) RVOT Peak Gr. 1.31 mmHg PV Peak Grad 5.2 mmHg RVOT Mean Gr. 0.65 mmHg PV Mean Grad 2.9 mmHg RVOT VTI 0.133 m PV VTI 0.238 m RVOT Vmax 0.57 m/s Tricuspid Valve TR Peak Grad 19.5 mmHg TR Vmax 2.21 m/s RA Pressure 8.00 mmHg RVSP (TR) 27.6 mmHg
== END 2021-01-09 02:11 ==
PROVIDERS: PCP Family Medicine; Visit Provider Family Medicine
DX: I31.3 Pericardial effusion (noninflammatory) (principal)
CPT/HCPCS: 93306

== ENCOUNTER → 2021-11-28 00:42 | Outpatient (CLI) | payer OTHER, SELFPAY ==
--- NOTE | 2021-11-28 08:15 | DI.CT_ITS ---
Exam(s) CT CHEST WO EXAM: CT CHEST WO CLINICAL HISTORY: eval PULMONARY nodule for interval change,R91.1 TECHNIQUE: Imaging Protocol: Axial computed tomography images with coronal and sagittal reformatted images were created and reviewed CONTRAST MATERIAL: Noncontrast CT CT CHEST PE CTA from 04/04/[address] CHEST WO from 12/06/2020 FINDINGS: Tracheobronchial tree: No bronchiectasis or mucous plugging. Mediastinum and Myriam: No dominant adenopathy or fluid collection. Pulmonary parenchyma: Stable fatty attenuation nodule medial left upper lobe at the level of the aort ic arch when compared with exams back to 2016 measuring 15 by 8 millimeter. 3 millimeter left lower lobe nodule. Stable calcified nodule left upper lobe. Stable right middle lobe nodule, 5 millimeter s peer no infiltrates. Pleura: No effusion or pneumothorax. Heart: The heart is mildly dilated. No coronary artery calcifications are seen. Tiny pericardial ef fusion inferiorly, unchanged. Aorta: Thoracic aorta non-dilated. Mild tortuosity. No significant calcification. Upper abdomen: Cyst upper pole left kidney. Lymph nodes: Within normal limits. Bones: This excavatum deformity. Degenerative changes in the thoracic spine. No compression fractur es. Soft tissues: Unremarkable. IMPRESSION: Stable bilateral pulmonary nodules back to 2016. RADIATION DOSE DELIVERED: 594.06mGy.cm Total DLP DATA REPOSITORY: All CT scans at this facility are submitted to the National Radiology Data Registry (NRDR) Dose Index Registry (DIR) with the [employer] (ACR). RADIATION OPTIMIZATION: All CT scans at this facility use at least one of these dose optimization te chniques: automated exposure control; mA and/or kV adjustment per patient size (includes targeted exa ms where dose is matched to clinical indication); or iterative reconstruction.
== END ==
PROVIDERS: PCP Nurse Practitioner; Visit Provider Family Medicine
DX: R91.8 Other nonspecific abnormal finding of lung field (principal)
CPT/HCPCS: 71250

== ENCOUNTER → 2021-12-03 13:06 | Outpatient (BNVA) | payer OTHER, SELFPAY | PROVIDERS: PCP Nurse Practitioner; Referring Provider Family Medicine; Visit Provider Student in an Organized Health Care Education/Training Program | DX: M17.12 Unilateral primary osteoarthritis, left knee (principal); M17.11 Unilateral primary osteoarthritis, right knee | CPT/HCPCS: 20610; J1040 ==

== ENCOUNTER 2021-12-07 01:57 | Outpatient (CLI) | payer OTHER, SELFPAY ==
[2021-12-07 23:01] LABS: PSA, Diagnostic 3.3 ng/mL (<=6.5)
[2021-12-12 16:37] LABS: Testosterone, Total 1020 ng/dL (240-950)
== END 2021-12-07 01:58 | disposition home or self-care (01) ==
LOC: LBO 01:58
PROVIDERS: PCP Nurse Practitioner; Visit Provider Urology
DX: E29.1 Testicular hypofunction (principal); R97.20 Elevated prostate specific antigen [PSA]; R79.89 Other specified abnormal findings of blood chemistry
CPT/HCPCS: 36415; 84403; 84153

== ENCOUNTER → 2021-12-14 13:53 | Outpatient (BNVA) | payer OTHER, SELFPAY | PROVIDERS: PCP Nurse Practitioner; Referring Provider Nurse Practitioner; Visit Provider Urology | DX: E29.1 Testicular hypofunction (principal); R97.20 Elevated prostate specific antigen [PSA]; R79.89 Other specified abnormal findings of blood chemistry | CPT/HCPCS: 99214 ==

== ENCOUNTER 2022-10-15 03:12 | Outpatient (CLI) | payer MEDICARE, SELFPAY ==
[2022-10-15 15:02] LABS: Abs Immature Grans 0.01 10^3/uL (0.0-0.06); Absolute Basophil Count 0.05 10^3/uL (0.0-0.2); Absolute Eosinophil Count 0.04 10^3/uL (0.0-0.7); Absolute Lymphocyte Count 1.73 10^3/uL (1.2-3.4); Absolute Monocyte Count 0.48 10^3/uL (0.1-0.8); Absolute Neutrophil Count 4.39 10^3/uL (1.2-6.7); Basophils % 0.7; Eosinophils % 0.6; HCT 45.5 % (40.0-50.0); HGB 15.9 g/dL (13.5-17.5); Immature Grans % 0.1; Lymphocytes % 25.8; MCH 33.4 pg (27.0-33.0); MCHC 34.9 % (32.0-36.0); MCV 96 fL (80-95); MPV 10.3 fL (8.0-11.0); Monocytes % 7.2; Neutrophils % 65.6; Platelet Count 118 10^3/uL (130-400); RBC 4.76 10^6/uL (4.36-5.78); RDW 12.6 % (11.8-14.1); RDW-SD 45.3 fL
[2022-10-15 16:34] LABS: ALT 36 U/L (16-63); AST 29 U/L (15-37); Alkaline Phosphatase 52 U/L (46-116); Anion Gap 7.3 mmol/L (3-11); BUN 16 mg/dL (7-18); Bilirubin, Total 1.1 mg/dL (0.2-1.0); CO2 27.7 mmol/L (21.0-32.0); CREATININE 1.3 mg/dL (0.70-1.30); Calcium 9.1 mg/dL (8.5-10.1); Chloride 106 mmol/L (98-107); Estimated GFR 55.88 (mL/min/1.73m2); Glucose 85 mg/dL (74-106); Potassium 4.4 mmol/L (3.5-5.1); Sodium 141 mmol/L (136-145); Total Protein 7.3 g/dL (6.4-8.2)
== END 2022-10-15 03:13 | disposition home or self-care (01) ==
PROVIDERS: PCP Nurse Practitioner Family; Visit Provider Nurse Practitioner Family
DX: R91.1 Solitary pulmonary nodule (principal); Z86.711 Personal history of pulmonary embolism; Z79.01 Long term (current) use of anticoagulants; F41.8 Other specified anxiety disorders; B20 Human immunodeficiency virus [HIV] disease; E29.1 Testicular hypofunction; R53.81 Other malaise
CPT/HCPCS: 36415; 80053; 85025

== ENCOUNTER 2022-10-30 02:46 | Outpatient (CLI) | payer MEDICARE, SELFPAY ==
[2022-10-30 14:10] LABS: Calculated LDL 72 mg/dL (<100); Cholesterol 169 mg/dL (<200); HDL Cholesterol 90 mg/dL (40-60); Triglyceride 35 mg/dL (<150)
== END 2022-10-30 02:47 | disposition home or self-care (01) ==
LOC: LBO 02:46
PROVIDERS: PCP Nurse Practitioner Family; Visit Provider Nurse Practitioner Family
DX: E78.2 Mixed hyperlipidemia (principal)
CPT/HCPCS: 36415; 80061; 84403; 84153

== ENCOUNTER 2022-12-05 04:01 | Outpatient (CLI) | payer MEDICARE, SELFPAY ==
[2022-12-06 19:55] LABS: PSA, Diagnostic 2.5 ng/mL (<=6.5)
[2022-12-13 08:20] LABS: Testosterone, Total 1850 ng/dL (240-950)
== END 2022-12-05 04:02 | disposition home or self-care (01) ==
LOC: LBO 04:01
PROVIDERS: Urology; PCP Nurse Practitioner Family; Visit Provider Nurse Practitioner Family
DX: R97.20 Elevated prostate specific antigen [PSA] (principal)
CPT/HCPCS: 36415; 84403; 84153

== ENCOUNTER 2023-01-09 02:22 | Outpatient (CLI) | payer MEDICARE, SELFPAY ==
[2023-01-09 21:13] LABS: PSA, Diagnostic 1.8 ng/mL (<=6.5)
[2023-01-10 15:41] LABS: 4/8 Ratio 0.77 (>=0.90); Absolute CD3 1324 Cells/uL (840-2669); Absolute CD8 787 Cells/uL (154-1097); CD3 81 % (56-84); CD4 37 % (31-64); CD8 48 % (9-39)
[2023-01-11 19:08] LABS: Testosterone, Total 435 ng/dL (240-950)
[2023-01-13 11:45] LABS: HIV 1 RNA Qualitative Undetected copies/mL (Undetected)
== END 2023-01-09 02:23 | disposition home or self-care (01) ==
LOC: LBO 03:27
PROVIDERS: PCP Nurse Practitioner Family; Visit Provider Urology
DX: B20 Human immunodeficiency virus [HIV] disease (principal); R79.89 Other specified abnormal findings of blood chemistry; R97.20 Elevated prostate specific antigen [PSA]
CPT/HCPCS: 36415; 84403; 87536; 84153; 86359; 86360; J1040

== ENCOUNTER → 2023-10-21 04:17 | Outpatient (CLI) | payer MEDICARE, SELFPAY ==
--- NOTE | 2023-10-21 07:30 | DI.CT_ITS ---
Exam(s) CT CHEST WO EXAM: CT CHEST WO CLINICAL HISTORY: Routine check, PULMONARY NODULE,R91.1. TECHNIQUE: Imaging protocol: Axial computed tomography images were obtained and coronal and sagittal reformatted images were created and reviewed. COMPARISON: CT CT CHEST WO from 11/28/2021 FINDINGS: Tracheobronchial tree: Patent where visualized. Pulmonary parenchyma: There is a stable 3 mm nodule in the periphery of the left lower lobe (series 3 , image 399). There is a stable 1.5 cm fat attenuation lesion in the medial aspect of the left upper lobe (series 3, image 200). There is a stable 4 mm nodule in the right middle lobe (series 3, image 49). No new pulmonary nodules are present. There is stable scarring in the lungs particularly the lower lobes bilaterally. No focal consolidating infiltrates are seen. Mediastinum and Myriam: No dominant adenopathy or fluid collection. The esophagus is unremarkable. Thyroid gland: Unremarkable. Pleura: No effusion or pneumothorax. Heart: The heart is not dilated. No coronary artery calcifications are seen. There is a very small pe ricardial effusion. Aorta: Thoracic aorta non-dilated. Atherosclerotic calcification is present. Upper abdomen: No acute findings are seen in the abdomen. Lymph nodes: Within normal limits. Soft tissues: Unremarkable. Bones:Within normal limits for the patient's age. Old healed rib fractures. 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 IMPRESSION: Stable pulmonary nodules. RADIATION DOSE DELIVERED: 565.06mGy.cm Total DLP 565.06mGy.cm Total DLP DATA REPOSITORY: All CT scans at this facility are submitted to the National Radiology Data Registry (NRDR) Dose Index Registry (DIR) with the [employer] ([employer]). RADIATION OPTIMIZATION: All CT scans at this facility use at least one of these dose optimization te chniques: automated exposure control; mA and/or kV adjustment per patient size (includes targeted exa ms where dose is matched to clinical indication); or iterative reconstruction.
== END ==
PROVIDERS: PCP Nurse Practitioner Family; Visit Provider Nurse Practitioner Family
DX: R91.1 Solitary pulmonary nodule (principal); R91.8 Other nonspecific abnormal finding of lung field; J98.4 Other disorders of lung; I31.39 Other pericardial effusion (noninflammatory)
CPT/HCPCS: 71250

== ENCOUNTER 2023-10-21 05:15 | Outpatient (CLI) | payer MEDICARE, SELFPAY ==
[2023-10-21 14:01] LABS: HCT 43.5 % (40.0-50.0); HGB 15.3 g/dL (13.5-17.5); MCH 33.7 pg (27.0-33.0); MCHC 35.2 % (32.0-36.0); MCV 96 fL (80-95); MPV 11.5 fL (8.0-11.0); Platelet Count 96 10^3/uL (130-400); RBC 4.54 10^6/uL (4.36-5.78); RDW 13.1 % (11.8-14.1); RDW-SD 46.3 fL; WBC 5.19 10^3/uL (4.4-10.8)
[2023-10-21 15:02] LABS: ALT 26 U/L (16-63); AST 26 U/L (15-37); Albumin 3.8 g/dL (3.4-5.0); Alkaline Phosphatase 56 U/L (46-116); Anion Gap 10.6 mmol/L (3-11); BUN 17 mg/dL (7-18); Bilirubin, Total 1.2 mg/dL (0.2-1.0); CO2 26.4 mmol/L (21.0-32.0); CREATININE 1.1 mg/dL (0.70-1.30); Calcium 8.9 mg/dL (8.5-10.1); Calculated LDL 59 mg/dL (<100); Chloride 106 mmol/L (98-107); Cholesterol 166 mg/dL (<200); Estimated GFR 67.86 (mL/min/1.73m2); Glucose 76 mg/dL (74-106); HDL Cholesterol 102 mg/dL (40-60); Potassium 3.9 mmol/L (3.5-5.1); Sodium 143 mmol/L (136-145); Total Protein 6.7 g/dL (6.4-8.2); Triglyceride 29 mg/dL (<150)
[2023-10-22 14:02] LABS: Absolute CD3 1185 Cells/uL (840-2669); Absolute CD8 683 Cells/uL (154-1097); CD3 83 % (56-84); CD4 38 % (31-64); CD8 48 % (9-39)
[2023-10-23 12:22] LABS: HIV 1 RNA Qualitative Detected copies/mL (Undetected); HIV 1 RNA Quantitative 21 copies/mL (Undetected)
== END 2023-10-21 05:16 | disposition home or self-care (01) ==
LOC: LBO 05:16
PROVIDERS: PCP Nurse Practitioner Family; Visit Provider Nurse Practitioner Family
DX: B20 Human immunodeficiency virus [HIV] disease (principal)
CPT/HCPCS: 36415; 80053; 80061; 85027; 87536; 86359; 86360

== ENCOUNTER → 2023-11-17 13:20 | Outpatient (BNVA) | payer MEDICARE, SELFPAY | PROVIDERS: PCP Nurse Practitioner Family; Referring Provider Nurse Practitioner Family | DX: M17.12 Unilateral primary osteoarthritis, left knee (principal); M17.11 Unilateral primary osteoarthritis, right knee | CPT/HCPCS: 20610; J1010 ==

== ENCOUNTER 2023-12-04 02:36 | Outpatient (CLI) | payer MEDICARE, SELFPAY ==
[2023-12-04 23:07] LABS: PSA, Diagnostic 2.5 ng/mL (<=6.5)
[2023-12-09 18:08] LABS: Testosterone, Total 1820 ng/dL (240-950)
== END 2023-12-04 02:37 | disposition home or self-care (01) ==
PROVIDERS: PCP Nurse Practitioner Family; Visit Provider Urology
DX: R79.89 Other specified abnormal findings of blood chemistry (principal); N40.1 Benign prostatic hyperplasia with lower urinary tract symptoms; R97.20 Elevated prostate specific antigen [PSA]
CPT/HCPCS: 36415; 84403; 84153

== ENCOUNTER → 2023-12-12 10:14 | Outpatient (BNVA) | payer MEDICARE, SELFPAY | PROVIDERS: PCP Nurse Practitioner Family; Visit Provider Urology | DX: E29.1 Testicular hypofunction (principal); R97.20 Elevated prostate specific antigen [PSA]; R79.89 Other specified abnormal findings of blood chemistry | CPT/HCPCS: 99213 ==

== ENCOUNTER 2024-02-17 03:15 | Outpatient (CLI) | payer MEDICARE, SELFPAY ==
[2024-02-21 15:17] LABS: Testosterone, Total 610 ng/dL (240-950)
== END 2024-02-17 03:16 | disposition home or self-care (01) ==
PROVIDERS: PCP Nurse Practitioner Family; Visit Provider Urology
DX: R79.89 Other specified abnormal findings of blood chemistry (principal)
CPT/HCPCS: 36415; 84403

== ENCOUNTER 2024-10-25 00:47 | Outpatient (CLI) | payer MEDICARE, SELFPAY ==
[2024-10-25 13:22] LABS: HCT 41.5 % (40.0-50.0); HGB 13.9 g/dL (13.5-17.5); MCH 31.2 pg (27.0-33.0); MCHC 33.5 % (32.0-36.0); MCV 93 fL (80-95); MPV 11.1 fL (8.0-11.0); Platelet Count 103 10^3/uL (130-400); RBC 4.45 10^6/uL (4.36-5.78); RDW 13.3 % (11.8-14.1); RDW-SD 45.5 fL
[2024-10-25 13:52] LABS: ALT 31 U/L (16-63); AST 26 U/L (15-37); Albumin 3.7 g/dL (3.4-5.0); Alkaline Phosphatase 60 U/L (46-116); Anion Gap 8.2 mmol/L (3-11); BUN 22 mg/dL (7-18); Bilirubin, Total 0.9 mg/dL (0.2-1.0); CO2 28.8 mmol/L (21.0-32.0); CREATININE 1.4 mg/dL (0.70-1.30); Calcium 9.1 mg/dL (8.5-10.1); Calculated LDL 77 mg/dL (<100); Chloride 105 mmol/L (98-107); Cholesterol 165 mg/dL (<200); Estimated GFR 50.49 (mL/min/1.73m2); Glucose 84 mg/dL (74-106); HDL Cholesterol 80 mg/dL (>or=40); Potassium 4.4 mmol/L (3.5-5.1); Sodium 142 mmol/L (136-145); Total Protein 6.7 g/dL (6.4-8.2); Triglyceride 42 mg/dL (<150)
[2024-10-25 22:24] LABS: PSA, Screening 1.8 ng/mL (<=6.5)
[2024-10-26 15:24] LABS: 4/8 Ratio 0.82 (>=0.90); Absolute CD3 1283 Cells/uL (840-2669); Absolute CD8 741 Cells/uL (154-1097); CD3 81 % (56-84); CD4 38 % (31-64); CD8 47 % (9-39)
[2024-10-28 11:38] LABS: HIV 1 RNA Qualitative Undetected Copys/mL (Undetected)
== END 2024-10-25 00:48 | disposition home or self-care (01) ==
LOC: LBO 00:47
PROVIDERS: PCP Nurse Practitioner Family; Visit Provider Nurse Practitioner Family
DX: B20 Human immunodeficiency virus [HIV] disease (principal); Z12.5 Encounter for screening for malignant neoplasm of prostate
CPT/HCPCS: 36415; 80053; 80061; 84153; 85027; 87536; 86359; 86360

== ENCOUNTER → 2024-11-04 12:55 | Outpatient (BNVA) | payer MEDICARE, SELFPAY | PROVIDERS: PCP Nurse Practitioner Family; Referring Provider Nurse Practitioner Family; Visit Provider Physician Assistant | DX: M17.0 Bilateral primary osteoarthritis of knee (principal); M79.641 Pain in right hand; M79.642 Pain in left hand | CPT/HCPCS: 99213; 20610; J1010 ==

== ENCOUNTER → 2024-11-09 13:50 | Outpatient (BNVA) | payer MEDICARE, SELFPAY | PROVIDERS: PCP Nurse Practitioner Family; Referring Provider Nurse Practitioner Family; Visit Provider Podiatrist | DX: B07.0 Plantar wart (principal); L84 Corns and callosities; M20.41 Other hammer toe(s) (acquired), right foot | CPT/HCPCS: 99213; 17110 ==

== ENCOUNTER 2024-12-09 02:38 | Outpatient (CLI) | payer MEDICARE, SELFPAY ==
[2024-12-09 22:34] LABS: PSA, Diagnostic 3.0 ng/mL (<=6.5)
== END 2024-12-09 02:39 | disposition home or self-care (01) ==
LOC: LBO 02:39
PROVIDERS: Urology; PCP Nurse Practitioner Family; Visit Provider Nurse Practitioner Family
DX: R79.89 Other specified abnormal findings of blood chemistry (principal); R97.20 Elevated prostate specific antigen [PSA]
CPT/HCPCS: 36415; 80076; 84403; 84153; 85025; 86359; 86360